=== PATIENT | male | born 1940 | race Caucasian/White ===

== ENCOUNTER 2017-07-31 18:00 | Inpatient (IN) | payer MEDICAID, OTHER ==
[~2017-07-31] VITALS: Ht 170.2 cm; Wt 58.5 kg
[2017-07-31] MEDS ORDERED: SODIUM CHLORIDE 0.9% 500 ML IV ONE (18:36)
[2017-07-31 18:56] LABS: BASOPHILS % 0.5 % (0.0-2.0); HEMATOCRIT. 33.2 % (42.0-52.0); HEMOGLOBIN. 11.1 g/dL (14.0-18.0); LYMPHOCYTES % 18.2 % (20.0-50.0); MEAN CORPUSCULAR HEMOGLOBIN 29.4 pg (28.0-32.0); MEAN CORPUSCULAR VOLUME 87.8 fL (80.0-94.0); MEAN PLATELET VOLUME 7.4 fl (7.4-10.4); MONOCYTES % 10.8 % (2.0-8.0); NEUTROPHILS % 66.5 % (40.0-76.0); PLATELET 277 x1000/uL (130-400); RED BLOOD CELL COUNT 3.78 mill/uL (4.7-6.1); RED CELL DISTRIBUTION WIDTH 16.6 % (11.6-14.6)
[2017-07-31 19:02] LABS: CARBON DIOXIDE 23 mEq/L (21-32); CHLORIDE 101 mEq/L (98-107)
[2017-07-31 19:03] LABS: D-DIMER 0.85 mg/L FEU (<0.50); PROTHROMBIN TIME 10.3 sec (9.4-11.6)
[2017-07-31 19:11] LABS: TROPONIN I < 0.02 ng/mL (0.00-0.04)
[2017-07-31] MEDS ORDERED: ASPIRIN 325MG TABLET PO ONE (19:45)
[2017-07-31] MEDS ORDERED: IOHEXOL-350 100 ML BOTTLE ONE (22:45)
[2017-07-31 23:30] VITALS: BP 158/87
[2017-08-01] VITALS (7 sets, daily range): BP systolic 98–174; BP diastolic 56–93
[2017-08-01] MEDS ORDERED: ONDANSETRON HCL 4MG/2ML VIAL IV PRN (00:45)
[2017-08-01] MEDS ORDERED: IPRATROPIUM/ALBUTEROL 0.5-3(2.5)MG/3ML NEB HHN PRN (00:45)
[2017-08-01] MEDS ORDERED: ZOLPIDEM TARTRATE 5MG TABLET PO PRN (00:45)
[2017-08-01 03:28] LABS: BASOPHILS % 0.5 % (0.0-2.0); EOSINOPHILS % 1.5 % (0.0-5.0); HEMATOCRIT. 34.6 % (42.0-52.0); HEMOGLOBIN. 11.6 g/dL (14.0-18.0); LYMPHOCYTES % 22.2 % (20.0-50.0); MEAN CORPUSCULAR HEMOGLOBIN 29.3 pg (28.0-32.0); MEAN CORPUSCULAR VOLUME 87.2 fL (80.0-94.0); MEAN PLATELET VOLUME 7.7 fl (7.4-10.4); NEUTROPHILS % 65.8 % (40.0-76.0); PLATELET 291 x1000/uL (130-400); RED BLOOD CELL COUNT 3.97 mill/uL (4.7-6.1); RED CELL DISTRIBUTION WIDTH 16.5 % (11.6-14.6)
[2017-08-01 03:38] LABS: CREATINE KINASE 86 IU/L (39-308); CREATINE KINASE MB FRACTION 3.3 ng/mL (0.5-3.6); TROPONIN I < 0.02 ng/mL (0.00-0.04)
[2017-08-01 03:45] LABS: CARBON DIOXIDE 25 mEq/L (21-32); CHLORIDE 104 mEq/L (98-107); HDL CHOLESTEROL 42 mg/dL (40-59); LDL CHOLESTEROL 87 mg/dL (5-100)
[2017-08-01 03:52] LABS: CLARITY URINE CLEAR (CLEAR); COLOR URINE YELLOW (YELLOW); GLUCOSE URINE NEGATIVE (NEGATIVE); KETONES URINE NEGATIVE (NEGATIVE); LEUKOCYTE ESTERASE URINE 2+ (NEGATIVE); NITRITE URINE NEGATIVE (NEGATIVE); OCCULT BLOOD URINE NEGATIVE (NEGATIVE); PH URINE 7.5 (4.5-8.0); PROTEIN URINE NEGATIVE (NEGATIVE)
[2017-08-01] MEDS: CLONIDINE 0.1MG TABLET PO PRN ×2 (05:12→22:08)
[2017-08-01] MEDS: AMLODIPINE 5MG TABLET PO SCH (09:29)
[2017-08-01] MEDS: ASPIRIN 81MG TABLET PO SCH (09:29)
[2017-08-01] MEDS: ENOXAPARIN 40MG/0.4ML SYR SUBCUT SCH (09:29)
[2017-08-01 12:51] LABS: CREATINE KINASE 69 IU/L (39-308); CREATINE KINASE MB FRACTION 2.7 ng/mL (0.5-3.6); TROPONIN I < 0.02 ng/mL (0.00-0.04)
[2017-08-01 20:41] LABS: ETHANOL BLOOD < 10 mg/dL; HDL CHOLESTEROL 43 mg/dL (40-59); LDL CHOLESTEROL 86 mg/dL (5-100); T4 FREE 1.07 ng/dL (0.76-1.46)
[2017-08-01 20:57] LABS: FOLIC ACID (FOLATE) SERUM 11.3 ng/mL (>5.38)
[2017-08-01] MEDS ORDERED: IOHEXOL-350 100 ML BOTTLE ONE (21:14)
[2017-08-01 22:53] LABS: *AMPHETAMINES SCREEN URINE NEGATIVE (NEGATIVE); *BARBITURATES SCREEN URINE NEGATIVE (NEGATIVE); *BENZODIAZEPINES SCREEN URINE NEGATIVE (NEGATIVE); *COCAINE SCREEN URINE NEGATIVE (NEGATIVE); CANNABINOID URINE SCREEN NEGATIVE (NEGATIVE); METHADONE URINE SCREEN NEGATIVE (NEGATIVE); OPIATES URINE SCREEN NEGATIVE (NEGATIVE); PHENCYCLIDINE URINE SCREEN NEGATIVE (NEGATIVE)
[2017-08-02] VITALS: BP 152/85
[2017-08-02 04:00] VITALS: BP 153/84
[2017-08-02 08:00] VITALS: BP_SYST 118; BP_SYST 76; BP_SYST 91; BP_DIAS 49; BP_DIAS 70; BP_DIAS 72
[2017-08-02] MEDS: ENOXAPARIN 40MG/0.4ML SYR SUBCUT SCH (08:53)
[2017-08-02] MEDS: ASPIRIN 81MG TABLET PO SCH (08:53)
[2017-08-02] MEDS: AMLODIPINE 5MG TABLET PO SCH (08:53)
[2017-08-02 12:00] VITALS: BP 133/70
[2017-08-02 16:00] VITALS: BP 128/74
[2017-08-02 20:00] VITALS: BP_SYST 101; BP_SYST 115; BP_SYST 150; BP_DIAS 56; BP_DIAS 72; BP_DIAS 77
[2017-08-03] VITALS (40 sets, daily range): BP systolic 75–173; BP diastolic 42–125
[2017-08-03] MEDS: ENOXAPARIN 40MG/0.4ML SYR SUBCUT SCH (09:00)
[2017-08-03] MEDS: AMLODIPINE 5MG TABLET PO SCH (09:00)
[2017-08-03] MEDS: ASPIRIN 81MG TABLET PO SCH (09:00)
[2017-08-03] MEDS ORDERED: GELATIN SPONGE,ABSORBABLE SZ 100 ONE (11:19)
[2017-08-03] MEDS ORDERED: BUPIVACAINE HCL/PF 0.5% (5MG/ML) 10ML ONE (11:20)
[2017-08-03] MEDS ORDERED: HEPARIN SODIUM 1,000 UNIT/1ML VIAL IV ONE (11:20)
[2017-08-03] MEDS ORDERED: THROMBIN (BOVINE) 5000 UNITS/VIAL TOP ONE ×3 (11:20→13:07)
[2017-08-03] MEDS ORDERED: LIDOCAINE HCL 1% 20ML VIAL (Pyxis) INJ ONE ×2 (11:20→12:22)
[2017-08-03] MEDS ORDERED: BACITRACIN ZINC 15GM TUBE TOP ONE (11:25)
[2017-08-03] MEDS ORDERED: BACITRACIN 50,000 UNITS/VIAL ONE (11:25)
[2017-08-03] MEDS ORDERED: NORMAL SALINE 0.9% 10 ML SYR ONE (11:25)
[2017-08-03] MEDS ORDERED: ONDANSETRON HCL 4MG/2ML VIAL IV PRN ×2 (12:00→13:15)
[2017-08-03] MEDS ORDERED: NICARDIPINE 40MG/200ML PREMIX 200 ML IV SCH (12:00)
[2017-08-03] MEDS ORDERED: MORPHINE SULFATE 10 MG/ML CPJ IV PRN (12:00)
[2017-08-03] MEDS ORDERED: PROPOFOL 200MG/20ML VIAL IV ONE (12:22)
[2017-08-03] MEDS ORDERED: FENTANYL CITRATE/PF 50MCG/ML 2ML VIAL ONE (12:22)
[2017-08-03] MEDS ORDERED: ROCURONIUM BROMIDE 10MG/ML VIAL 5ML IV ONE (12:23)
[2017-08-03] MEDS ORDERED: PHENYLEPHRINE HCL 10 MG/ML 1ML (IV VIAL) IV ONE (12:32)
[2017-08-03] MEDS ORDERED: DEXAMETHASONE 4MG/ML 1ML VIAL ONE (12:58)
[2017-08-03] MEDS ORDERED: CEFAZOLIN SODIUM 1000MG/VIAL ONE (12:58)
[2017-08-03] MEDS ORDERED: ONDANSETRON HCL 4MG/2ML VIAL ONE (12:59)
[2017-08-03] MEDS ORDERED: HEPARIN 1000 UNITS/ML 10ML ONE (13:09)
[2017-08-03] MEDS ORDERED: MEPERIDINE HCL/PF 25MG/ML CPJ IV PRN (13:15)
[2017-08-03] MEDS ORDERED: HYDROMORPHONE HCL/PF 2MG/ML CPJ IV PRN (13:15)
[2017-08-03] MEDS ORDERED: LABETALOL 5MG/ML SYR 20 MG/4 ML SYRINGE IV PRN (13:15)
[2017-08-03] MEDS ORDERED: PROTAMINE SULFATE 10MG/ML VIAL 5ML IV ONE (13:42)
[2017-08-04] VITALS (17 sets, daily range): BP systolic 130–160; BP diastolic 62–98
[2017-08-04 05:51] LABS: BASOPHILS % 0.2 % (0.0-2.0); HEMATOCRIT. 36.9 % (42.0-52.0); HEMOGLOBIN. 12.5 g/dL (14.0-18.0); LYMPHOCYTES % 10.8 % (20.0-50.0); MEAN CORPUSCULAR HEMOGLOBIN 29.8 pg (28.0-32.0); MEAN PLATELET VOLUME 8.1 fl (7.4-10.4); MONOCYTES % 6.2 % (2.0-8.0); NEUTROPHILS % 82.8 % (40.0-76.0); PLATELET 291 x1000/uL (130-400); RED BLOOD CELL COUNT 4.19 mill/uL (4.7-6.1); RED CELL DISTRIBUTION WIDTH 16.7 % (11.6-14.6)
[2017-08-04 05:56] LABS: CARBON DIOXIDE 25 mEq/L (21-32); CHLORIDE 100 mEq/L (98-107)
[2017-08-04] MEDS: ENOXAPARIN 40MG/0.4ML SYR SUBCUT SCH (08:16)
[2017-08-04] MEDS: AMLODIPINE 5MG TABLET PO SCH (08:17)
[2017-08-04] MEDS: ASPIRIN 81MG TABLET PO SCH (08:17)
[2017-08-04] MEDS: CLONIDINE 0.1MG TABLET PO PRN (16:57)
[2017-08-04] MEDS ORDERED: DILTIAZEM HCL 5MG/ML 5ML VIAL IV PRN (21:45)
[2017-08-05] VITALS: BP 105/80
[2017-08-05 04:00] VITALS: BP 113/74
[2017-08-05 07:39] VITALS: BP 112/86
[2017-08-05] MEDS: ENOXAPARIN 40MG/0.4ML SYR SUBCUT SCH (08:56)
[2017-08-05] MEDS: AMLODIPINE 5MG TABLET PO SCH (08:56)
[2017-08-05] MEDS: ASPIRIN 81MG TABLET PO SCH (08:56)
[2017-08-05] MEDS ORDERED: MORPHINE SULFATE 4 MG/ML CPJ (NOT FOR IM USE) IV PRN (10:35)
[2017-08-05 11:50] VITALS: BP 115/73
[2017-08-05] MEDS: CYANOCOBALAMIN 1000MCG/ML VIAL IM SCH (13:30)
[2017-08-05] MEDS: CLOPIDOGREL 75MG TABLET PO SCH (13:31)
[2017-08-05 16:00] VITALS: BP 114/59
[2017-08-05 20:00] VITALS: BP 165/86
[2017-08-05] MEDS: CLONIDINE 0.1MG TABLET PO PRN (21:28)
[2017-08-05] MEDS: ATORVASTATIN CALCIUM 10MG TABLET PO SCH (21:28)
[2017-08-06] VITALS: BP 146/91
[2017-08-06] MEDS: DILTIAZEM HCL 30MG TABLET PO SCH ×4 (00:02→17:02)
[2017-08-06 04:00] VITALS: BP 122/76
[2017-08-06 08:00] VITALS: BP 113/68
[2017-08-06] MEDS: ASPIRIN 81MG TABLET PO SCH (08:21)
[2017-08-06] MEDS: CLOPIDOGREL 75MG TABLET PO SCH (08:21)
[2017-08-06] MEDS: CYANOCOBALAMIN 1000MCG/ML VIAL IM SCH (08:22)
[2017-08-06] MEDS: ENOXAPARIN 40MG/0.4ML SYR SUBCUT SCH (08:22)
[2017-08-06 12:00] VITALS: BP 123/98
[2017-08-06 16:00] VITALS: BP 149/71
[2017-08-06 20:00] VITALS: BP 135/81
[2017-08-06] MEDS: ATORVASTATIN CALCIUM 10MG TABLET PO SCH (21:09)
[2017-08-07] VITALS: BP 123/90
[2017-08-07] MEDS: DILTIAZEM HCL 30MG TABLET PO SCH ×4 (01:26→17:17)
[2017-08-07 04:00] VITALS: BP 146/89
[2017-08-07 08:00] VITALS: BP 137/76
[2017-08-07] MEDS: ASPIRIN 81MG TABLET PO SCH (08:09)
[2017-08-07] MEDS: CLOPIDOGREL 75MG TABLET PO SCH (08:09)
[2017-08-07] MEDS: CYANOCOBALAMIN 1000MCG/ML VIAL IM SCH (08:10)
[2017-08-07] MEDS: ENOXAPARIN 40MG/0.4ML SYR SUBCUT SCH (08:11)
[2017-08-07 12:00] VITALS: BP 125/71
[2017-08-07 16:00] VITALS: BP 146/83
[2017-08-07 20:00] VITALS: BP 126/70
[2017-08-07] MEDS: ATORVASTATIN CALCIUM 10MG TABLET PO SCH (20:23)
[2017-08-08] VITALS: BP 132/59
[2017-08-08] MEDS: DILTIAZEM HCL 30MG TABLET PO SCH ×3 (01:02→13:06)
[2017-08-08 04:00] VITALS: BP 112/79
[2017-08-08 08:00] VITALS: BP 164/74
[2017-08-08] MEDS: ASPIRIN 81MG TABLET PO SCH (09:43)
[2017-08-08] MEDS: CYANOCOBALAMIN 1000MCG/ML VIAL IM SCH (09:43)
[2017-08-08] MEDS: CLOPIDOGREL 75MG TABLET PO SCH (09:43)
[2017-08-08 12:00] VITALS: BP 151/83
[2017-08-08 13:08] VITALS: BP 151/83
[2017-08-11 13:12] LABS: 25-HYDROXY VITAMIN D3 12 ng/mL (.)
== END 2017-08-08 13:55 | disposition short-term general hospital (02) | DRG 24 ==
LOC: ER 18:33 → 7WST 20:45 → EDBEDREQTM 20:46 → EDBEDREQ 20:46 → ENRESERV 21:19 → CVICU 08-03 14:40 → 5WST 08-04 15:22
PROVIDERS: ADMIT Internal Medicine; ATTEND Internal Medicine
PROC: 03CK0ZZ Extirpation of Matter from Right Internal Carotid Artery, Open Approach (ICD-10-PCS; 2017-08-03)
PROC: 03CH0ZZ Extirpation of Matter from Right Common Carotid Artery, Open Approach (ICD-10-PCS; principal; 2017-08-03 12:00)
DX: I63.9 Cerebral infarction, unspecified (principal); G81.94 Hemiplegia, unspecified affecting left nondominant side; E44.1 Mild protein-calorie malnutrition; E87.1 Hypo-osmolality and hyponatremia; N39.0 Urinary tract infection, site not specified; I48.91 Unspecified atrial fibrillation; K90.49 Malabsorption due to intolerance, not elsewhere classified; R41.4 Neurologic neglect syndrome; I10 Essential (primary) hypertension; E53.8 Deficiency of other specified B group vitamins; D64.9 Anemia, unspecified; I45.10 Unspecified right bundle-branch block; I65.23 Occlusion and stenosis of bilateral carotid arteries; E83.51 Hypocalcemia; D50.8 Other iron deficiency anemias; I77.1 Stricture of artery; I95.1 Orthostatic hypotension; Z68.1 Body mass index [BMI] 19.9 or less, adult; Z82.49 Family history of ischemic heart disease and other diseases of the circulatory system
CPT/HCPCS: 36415; 70450; 70496; 70498; 70551; 71010; 71275; 80048; 80053; 80061; 80305; 81001; 82306; 82550; 82553; 82607; 82746; 83036; 83735; 83880; 84439; 84443; 84481; 84484; 84630; 85025; 85379; 85610; 87086; 88304; 88311; 92523; 93005; 93306; 93880; 93970; 96360; 97110; 97112; 97116; 97163; 97164; 97166; 97530; 97535; 99285; A4216; G0482; J0690; J1100; J1644; J1650; J2370; J2405; J2704; J2720; J3010; J3420; J3490; J7030; J7040; J7620; Q9967